=== PATIENT | female | born 1960 | race Caucasian/White ===

== ENCOUNTER 2019-12-29 08:57 | Outpatient (CLI) | payer BC, SELFPAY ==
--- NOTE | ~2019-12-29 | MM_ITS ---
EXAMINATION: MM screening ty BI w flavia HISTORY: Screening TECHNIQUE: Craniocaudal and mediolateral oblique 3-D tomosynthesis images were obtained and synthetic 2-D images were generated. CAD analysis was submitted and interpreted. COMPARISON: Comparison to multiple prior studies sequentially, with oldest reviewed study dated 11/15. BREAST PARENCHYMAL COMPOSITION: There are scattered areas of fibroglandular density. FINDINGS: The right breast is stable without evidence for malignancy. There are developing asymmetrie s in the upper inner quadrant of the left breast. IMPRESSION: 1. Developing asymmetries of the upper inner quadrant of the left breast. 2. Additional mammographic views and possible breast ultrasound are recommended. BI-RADS Category 0: Incomplete: Needs additional imaging evaluation. Reviewed, dictated and finalized at location A. ERY LOADER IMPRESSION: 1. Developing asymmetries of the upper inner quadrant of the left breast. 2. Additional mammographic views and possible breast ultrasound are recommended . BI-RADS Category 0: Incomplete: Needs additional imaging evaluation.
== END 2019-12-29 08:58 | disposition home or self-care (01) ==
LOC: ANHIMG 09:01
PROVIDERS: PCP Internal Medicine; Visit Provider Obstetrics & Gynecology
DX: Z12.31 Encounter for screening mammogram for malignant neoplasm of breast (principal); R92.8 Other abnormal and inconclusive findings on diagnostic imaging of breast
CPT/HCPCS: 77063; 77067

== ENCOUNTER 2020-02-01 13:53 | Outpatient (CLI) | payer BC, SELFPAY ==
--- NOTE | ~2020-02-01 | MMUS_ITS ---
EXAMINATION: MM diagnostic mammo unilat LT, US breast LT complete HISTORY: Follow-up left breast asymmetries TECHNIQUE: Additional 3-D tomosynthesis images of the left breast were performed and synthetic 2-D im ages were generated. CAD analysis was submitted and interpreted. High resolution breast ultrasound wa s performed. COMPARISON: Comparison to multiple prior studies sequentially, with oldest reviewed study dated 11/15. BREAST PARENCHYMAL COMPOSITION: Breast composed of scattered areas of fibroglandular density. FINDINGS: MAMMOGRAPHIC FINDINGS: Breast composed of scattered areas of fibroglandular density. There are stable asymmetries. No discre te mass, architectural distortion or suspicious calcifications. ULTRASOUND: Left breast ultrasound: At 3:00 there is a 4 mm intramammary lymph node. At 9:00, 4 cm from the nippl e, there is an shadowing without discrete mass, likely an artifact. IMPRESSION: 1. Probable artifactual edge shadowing of the left breast by ultrasound at 9:00, 4 cm from the nipple . 2. Recommend 6 month follow-up left breast ultrasound BI-RADS category 3, probably benign findings. Reviewed, dictated and finalized at location A. HOP SERVICE CAPTAIN IMPRESSION: 1. Probable artifactual edge shadowing of the left breast by ultrasound at 9:00 , 4 cm from the nipple. 2. Recommend 6 month follow-up left breast ultrasound BI-RADS category 3, probably benign findings.
== END 2020-02-01 13:54 | disposition home or self-care (01) ==
PROVIDERS: PCP Internal Medicine; Visit Provider Obstetrics & Gynecology
DX: R92.8 Other abnormal and inconclusive findings on diagnostic imaging of breast (principal)
CPT/HCPCS: 76641; 77065

== ENCOUNTER → 2020-07-12 07:55 | Outpatient (CLI) | payer BC, SELFPAY ==
[2020-07-12 19:22] LABS: SARS-CoV-2 RNA PCR Negative
== END ==
PROVIDERS: PCP Family Medicine; Visit Provider Internal Medicine Gastroenterology
DX: Z01.812 Encounter for preprocedural laboratory examination (principal); Z20.822 Contact with and (suspected) exposure to COVID-19
CPT/HCPCS: C9803; U0003; U0005

== ENCOUNTER 2020-07-15 01:40 | Day surgery (SDC) | payer BC, SELFPAY ==
[2020-07-09 11:46] VITALS: BMI 26.2
[2020-07-15 11:40] VITALS: BP 140/77; PULSE 66; RESP 16; TEMP 36.5; O2SAT 99
[2020-07-15] MEDS: LACTATED RINGERS 1,000 ML 150 ML IV CONT (11:53)
--- NOTE | 2020-07-15 11:53 | WPDANESEPPF ---
Anes - Initial Pre Proc Eval Procedure: Operation Date: 07/15/20 13:00 Proposed Procedures p Screening Colonoscopy - Raghu Flores MD Date/Time: 07/15/20 11:53 Surgeon: Raghu Flores MD Pre Op Diagnosis: neoplasm screening Patient Data Age: 59 Gender: F Height: 4 ft 11 in Weight: 62.9 kg Last Vital Signs Temp 36.5 C 07/15/20 11:40 Pulse 66 07/15/20 11:40 Resp 16 07/15/20 11:40 BP 140/77 07/15/20 11:40 Pulse Ox 99 07/15/20 11:40 Allergies Allergy/AdvReac Type Severity Reaction Status Date / Time morphine Allergy Severe Migraine Verified 07/15/20 11:39 Penicillins Allergy Severe Difficulty Verified 07/15/20 11:39 Breathing prednisone Allergy Severe Confusion Verified 07/15/20 11:39 Home Medications Medication Instructions Recorded Confirmed Type ascorbic acid (vitamin C) 500 mg 500 mg PO DAILY 11/10/19 07/09/20 History capsule ibuprofen 200 mg capsule 600 mg PO DAILY 11/10/19 07/09/20 History multivitamin 1 cap PO DAILY 11/10/19 07/09/20 History sumatriptan 20 mg/actuation nasal 20 mg INTRANASAL Q2H PRN #6 ea 03/25/20 07/09/20 Rx spray sumatriptan succinate 100 mg tablet See Rx Instructions PO .COMPLEX #9 03/25/20 07/09/20 Rx tablet ondansetron HCl 4 mg tablet 4 mg PO Q8H PRN #20 tablet 05/05/20 07/09/20 Rx sod picosulf 10 mg-magnes 3.5 160 ml PO BID #160 ml 07/05/20 Rx gram-citric 12 gram/160 mL oral solution Marci-D 24 Hour 1 tab-cap PO DAILY 07/09/20 07/09/20 History fluticasone propionate 2 spray INTRANASAL BID 07/09/20 07/09/20 History magnesium oxide 400 mg PO DAILY 07/09/20 07/09/20 History potassium 99 mg PO DAILY 07/09/20 07/09/20 History Patient hx anesthesia problems: none Family hx anesthesia problems: none PMFSH Past Medical History Medical History Anxiety Asthma as a child Chronic rhinitis Hepatitis C cured Migraines x3 Surgical History Surgical History History of bilateral tubal ligation 1980 History of breast biopsy History of salpingoophorectomy 1988, Lt [place] teeth extracted 1999 Family History Family History Father Hypertension Family history of heart disease in male family member before age 55 Family history of diabetes mellitus in first degree relative Mother Carcinoma of colon Family history of malignant neoplasm of breast in first degree relative Mother Breast cancer Vaginal cancer Carcinoma of colon Father Diabetes mellitus Acute myocardial infarction Hypertension Hypercholesteremia Other Carcinoma of colon neice Social History Social History Smoking packs per day: 0.5 Smoking cigarettes per day: 10.0 Years smoked: 30 Smoking pack-years: 15.00 Smoking status: Former smoker Tobacco type: cigarettes Second hand tobacco smoke exposure: Yes Smoking end date: 02/22/02 Alcohol intake: current Drinks per week: 1 Substance use: never Substance use type: marijuana Other substance usage details: MEDICAL MARIJUANA CARD-5 TOKES DAILY Living arrangements: with family Gender identity (if verbalized by the patient): Female Spiritual care concerns: No Anes - Eval Final PreProcedure Day of Procedure 07/15/20 11:53 Patient weight: overweight Heart: regular rate and rhythm Lungs: clear to auscultation Airway: Mallampati scale class II Neurological: alert and oriented Last oral intake: >/= 8 hours ASA classification: III Emergent: no Anesthetic plan: proceed Anesthesia type and monitoring: general GIVS and standard monitoring Informed Consent: The patient's anesthetic plan and its attendant risks and benefits were discussed with the patient/family/POA. Questions were solicited and answers provided to the satisfaction of the patient/family/POA.
--- NOTE | 2020-07-15 11:56 | WPDGICN ---
Assessment and Plan Assessment and plan (1) Family history of colon cancer in mother: Code(s): Z80.0 - Family history of malignant neoplasm of digestive organs Status: Acute Assessment and Plan: Patient's family history is significant that her mother had colon cancer. For this reason surveillance colonoscopy now and at 5 year intervals in the future is advised. GI Consult Note Consult date/time: 07/15/20 11:56 HPI: Joselyn Roman is a 59 year old female Presents for screening colonoscopy. Patient reports that her current weight appetite bowel movements are normal. She denies abdominal pain. She has had no bleeding. Family history is significant her mother had colon cancer a niece had colon cancer as well. Genetic testing has been performed in she apparently does not have a genetic abnormality. Patient nonetheless presents today for colonoscopy. Past medical history is significant for adequately treated hepatitis C in the distant past. Review of Systems Review of Systems: All systems reviewed & are unremarkable except as noted in HPI and below PMFSH Past Medical History Medical History Anxiety Asthma as a child Chronic rhinitis Hepatitis C cured Migraines x3 Surgical History Surgical History History of bilateral tubal ligation 1980 History of breast biopsy History of salpingoophorectomy 1988, Lt [place] teeth extracted 1999 Family History Family History Father Hypertension Family history of heart disease in male family member before age 55 Family history of diabetes mellitus in first degree relative Mother Carcinoma of colon Family history of malignant neoplasm of breast in first degree relative Mother Breast cancer Vaginal cancer Carcinoma of colon Father Diabetes mellitus Acute myocardial infarction Hypertension Hypercholesteremia Other Carcinoma of colon neice Social History Social History Smoking packs per day: 0.5 Smoking cigarettes per day: 10.0 Years smoked: 30 Smoking pack-years: 15.00 Smoking status: Former smoker Tobacco type: cigarettes Second hand tobacco smoke exposure: Yes Smoking end date: 02/22/02 Alcohol intake: current Drinks per week: 1 Substance use: never Substance use type: marijuana Other substance usage details: MEDICAL MARIJUANA CARD-5 TOKES DAILY Living arrangements: with family Gender identity (if verbalized by the patient): Female Spiritual care concerns: No Meds Home Medications and Allergies Home Medications Medication Instructions Recorded Confirmed Type ascorbic acid (vitamin C) 500 mg 500 mg PO DAILY 11/10/19 07/09/20 History capsule ibuprofen 200 mg capsule 600 mg PO DAILY 11/10/19 07/09/20 History multivitamin 1 cap PO DAILY 11/10/19 07/09/20 History sumatriptan 20 mg/actuation nasal 20 mg INTRANASAL Q2H PRN #6 ea 03/25/20 07/09/20 Rx spray sumatriptan succinate 100 mg tablet See Rx Instructions PO .COMPLEX #9 03/25/20 07/09/20 Rx tablet ondansetron HCl 4 mg tablet 4 mg PO Q8H PRN #20 tablet 05/05/20 07/09/20 Rx sod picosulf 10 mg-magnes 3.5 160 ml PO BID #160 ml 07/05/20 Rx gram-citric 12 gram/160 mL oral solution Marci-D 24 Hour 1 tab-cap PO DAILY 07/09/20 07/09/20 History fluticasone propionate 2 spray INTRANASAL BID 07/09/20 07/09/20 History magnesium oxide 400 mg PO DAILY 07/09/20 07/09/20 History potassium 99 mg PO DAILY 07/09/20 07/09/20 History Allergies Allergy/AdvReac Type Severity Reaction Status Date / Time morphine Allergy Severe Migraine Verified 07/15/20 11:39 Penicillins Allergy Severe Difficulty Verified 07/15/20 11:39 Breathing prednisone Allergy Severe Confusion Verified 07/15/20 11:39 Vital Signs Vital Sign
[2020-07-15 12:26] VITALS: BP 106/64; PULSE 85; RESP 26; O2SAT 95
[2020-07-15 12:36] VITALS: BP 94/59; PULSE 69; RESP 17; O2SAT 97
[2020-07-15 12:47] VITALS: BP 132/78; PULSE 66; RESP 23; O2SAT 98
--- NOTE | 2020-07-15 13:32 | SUR.PHASEII ---
Pt waiting on sister for transportation.
== END 2020-07-15 13:43 | disposition home or self-care (01) ==
PROVIDERS: PCP Family Medicine; Visit Provider Internal Medicine Gastroenterology
PROC: 0DJD8ZZ Inspection of Lower Intestinal Tract, Via Natural or Artificial Opening Endoscopic (ICD-10-PCS; CPT 45378; principal; 2020-07-15 13:00)
DX: Z12.11 Encounter for screening for malignant neoplasm of colon (principal); Z80.0 Family history of malignant neoplasm of digestive organs; F41.9 Anxiety disorder, unspecified; Z86.19 Personal history of other infectious and parasitic diseases; J31.0 Chronic rhinitis; Z90.721 Acquired absence of ovaries, unilateral; Z87.891 Personal history of nicotine dependence; Z79.899 Other long term (current) drug therapy
CPT/HCPCS: 45378; C9803; J2704; J7120; U0003; U0005

== ENCOUNTER 2020-08-08 08:40 | Outpatient (CLI) | payer BC, SELFPAY ==
--- NOTE | ~2020-08-08 | US_ITS ---
EXAMINATION: US breast LT limited HISTORY: Six-month follow-up for probably benign sonographically detected area of shadowing on ultras ound TECHNIQUE: Limited left breast ultrasound is performed. COMPARISON: 02/01/2020 FINDINGS: There is an unchanged area of acoustic shadowing at the 9:00 location 4 cm from the nipple in the left breast without definite associated mass. IMPRESSION: Stable, probably benign area of acoustic shadowing of the left breast. Follow-up targeted left breast ultrasound six months is recommended. BI-RADS category 3, probably benign findings. Reviewed, dictated and finalized at location A. IMPRESSION: Stable, probably benign area of acoustic shadowing of the left breast. Follow-u p targeted left breast ultrasound six months is recommended. BI-RADS category 3, probably benign findings.
== END 2020-08-08 08:41 | disposition home or self-care (01) ==
LOC: CHSIMG 08:42
PROVIDERS: PCP Family Medicine; Visit Provider Obstetrics & Gynecology
DX: R92.8 Other abnormal and inconclusive findings on diagnostic imaging of breast (principal)
CPT/HCPCS: 76642